=== PATIENT | female | born 1960 | race Caucasian/White ===

== ENCOUNTER 2021-07-30 12:16 | Emergency (ER) | payer MEDICARE, MEDICAID ==
[2021-07-30 13:05] LABS: HEMOGLOBIN 14.8 gm/dl (12.3-15.3); RED BLOOD COUNT 5.16 M/UL (4.00-5.10); WHITE BLOOD COUNT 8.4 K/UL (4.5-11.0)
[2021-07-30 13:55] LABS: BUN/CREATININE RATIO 13 (0-10)
== END 2021-07-30 16:15 | disposition home or self-care (01) ==
LOC: ER1 12:16
PROVIDERS: Physician Assistant
DX: R06.02 Shortness of breath (principal); I10 Essential (primary) hypertension; F17.200 Nicotine dependence, unspecified, uncomplicated; K21.9 Gastro-esophageal reflux disease without esophagitis; J44.9 Chronic obstructive pulmonary disease, unspecified
CPT/HCPCS: 71045; 80053; 82550; 82553; 83874; 84484; 85025; 93005; 99285

== ENCOUNTER → 2021-08-10 | Outpatient (CLI) | payer MEDICARE, OTHER | LOC: HEART 5 08:45 → NM 08:45 | DX: Z01.810 Encounter for preprocedural cardiovascular examination (principal); R94.31 Abnormal electrocardiogram [ECG] [EKG] | CPT/HCPCS: 78452; 93017; A9502; J2785 ==

== ENCOUNTER → 2021-09-02 | Outpatient (CLI) | payer MEDICARE, OTHER ==
[~2021-09-02] MED LIST: ATORVASTATIN CA80 MG PO; COREG 25MG TAB25 MG PO; ENDOCET 10-3251 EACH PO; FLONASE ALLER15.8 ML; GARLIQUE PO; IBU800 MG PO; IPRATROPIUM BRO15 ML; NEXIUM40 MG PO; NORVASC10 MG PO; ONDANSETRON ODT8 MG PO; OXYCONTIN20 MG PO; RAMIPRIL10 MG PO; SINGULAIR10 MG PO; [UNRECOGNIZED DRUG - OTHER] PO
[2021-09-02 11:16] LABS: HEMOGLOBIN 14.7 gm/dl (12.3-15.3); RED BLOOD COUNT 5.31 M/UL (4.00-5.10); WHITE BLOOD COUNT 8.5 K/UL (4.5-11.0)
[2021-09-02 11:36] LABS: BUN/CREATININE RATIO 15 (0-10)
== END ==
LOC: OPSV2 10:03 → EDSTATUS 10:30
PROVIDERS: Orthopaedic Surgery
DX: Z01.818 Encounter for other preprocedural examination (principal); M76.9 Unspecified enthesopathy, lower limb, excluding foot
CPT/HCPCS: 36415; 71046; 80048; 85027

== ENCOUNTER → 2021-09-14 | Outpatient (CLI) | payer MEDICARE, OTHER ==
[~2021-09-14] MED LIST changes: +ASPIRIN EC81 MG PO; +CYCLOBENZAPRINE10 MG PO; +OXYCODONE HCL E20 MG PO; +ROXICODONE15 MG PO; +ZOFRAN 4 MG TAB4 MG PO
[2021-09-14 12:25] LABS: BUN/CREATININE RATIO 12 (0-10)
== END ==
LOC: LAB 11:02
PROVIDERS: Orthopaedic Surgery
DX: Z01.812 Encounter for preprocedural laboratory examination (principal); M17.32 Unilateral post-traumatic osteoarthritis, left knee
CPT/HCPCS: 36415; 80048; 86850; 86900; 86901